=== PATIENT | male | born 1995 | race Caucasian/White ===

== ENCOUNTER 2017-08-08 16:30 | Emergency (ER) | payer OTHER ==
--- NOTE | 2017-08-08 18:44 | ED ---
Head Injury - HPI Summary HPI Summary: 21-year-old male presents with head injury yesterday. He states he was messing around and hit his head on the floor. Denies loss conscious. He admits to nausea but denies any vomiting. Denies any change in vision. He admits to photophobia. He states he is not able to sleep well last night. He denies any dizziness. He was sent from [facility] and they told him to come here for CT. He felt very anxious when he was seen there as he was tachycardic. He states he is not anxious any more. His vitals here are stable. - History Of Current Complaint Chief Complaint: EDHeadInjury Stated Complaint: HIT HEAD YESTERDAY Time Seen by Provider: 08/08/17 18:21 Pain Intensity: 3 - Allergies/Home Medications Allergies/Adverse Reactions: Allergies Allergy/AdvReac Type Severity Reaction Status Date / Time Penicillins Allergy Unknown Verified 08/08/17 16:34 Reaction Details PMH/Surg Hx/FS Hx/Imm Hx Endocrine/Hematology History: Denies: Hx Anticoagulant Therapy Cardiovascular History: Denies: Hx Hypertension Infectious Disease History: No Infectious Disease History: Denies: Traveled Outside the [place] in Last 30 Days - Family History Known Family History: Negative: Seizure Disorder - Social History Alcohol Use: None Substance Use Type: Reports: Marijuana Substance Use Comment - Amount & Last Used: occasionally Smoking Status (MU): Never Smoked Tobacco Review of Systems Negative: Fever Negative: Chest Pain Negative: Shortness Of Breath Positive: Nausea. Negative: Vomiting Positive: Headache All Other Systems Reviewed And Are Negative: Yes Physical Exam Triage Information Reviewed: Yes Vital Signs On Initial Exam: Initial Vitals Temp Pulse Resp BP Pulse Ox 98.0 F 97 20 130/68 99 08/08/17 16:34 08/08/17 16:34 08/08/17 16:34 08/08/17 16:34 08/08/17 16:34 Vital Signs Reviewed: Yes Appearance: Positive: Well-Appearing Skin: Positive: Warm, Dry Head/Face: Positive: Normal Head/Face Inspection, Other - no step off, racoon eyes, edge sign Eyes: Positive: Normal, EOMI, WONG, Conjunctiva Clear ENT: Positive: Normal ENT inspection, Pharynx normal, TMs normal Respiratory/Lung Sounds: Positive: Clear to Auscultation, Breath Sounds Present Cardiovascular: Positive: Normal, RRR Abdomen Description: Positive: Nontender, Soft Bowel Sounds: Positive: Present Musculoskeletal: Positive: Normal Neurological: Positive: Sensory/Motor Intact, Alert, Oriented to Person Place, Time, CN Intact II-III, Heel to Toe, Finger to Nose Psychiatric: Positive: Normal - Kelford Coma Scale Best Eye Response: 4 - Spontaneous Best Motor Response: 6 - Obeys Commands Best Verbal Response: 5 - Oriented Coma Scale Total: 15 Diagnostics - Vital Signs Vital Signs Temp Pulse Resp BP Pulse Ox 08/08/17 16:34 98.0 F 97 20 130/68 99 - Laboratory Lab Statement: Any lab studies that have been ordered have been reviewed, and results considered in the medical decision making process. Head Injury Course/Dx Course Of Treatment: 21-year-old male presents with head injury yesterday. He states he was messing around and hit his head on the floor. Denies loss conscious. He admits to nausea but denies any vomiting. Denies any change in vision. He admits to photophobia. He states he is not able to sleep well last night. He denies any dizziness. He was sent from [facility] and they told him to come here for CT. He felt very anxious when he was seen there as he was tachycardic. He states he is not anxious any more. His vitals here are stable. On exam normal neuro exam. According to the [place] CT rules no imaging required. Discuss with patient and will not get CT at this time. Explained has concussion. Will have follow-up with [facility]. Patient understands and agrees with plan. - Diagnoses Differential Diagnosis/HQI/PQRI: Concussion Without LOC, Contusion, Intracranial Bleed Provider Diagnoses: Head injury Discharge - Discharge Plan Condition: Good Disposition: HOME Patient Education Materials: Concussion (ED) Referrals: [facility] - Hernán DAMICO [Primary Care Provider] - Additional Instructions: Place ice on area as needed Take Tylenol or ibuprofen for headache every 6 hours Modify activities as tolerated Follow up with hernán within 5 days Return to ED if develop vomiting, severe headache, or any new or worsening symptoms
[2017-08-08 18:50] VITALS: BP 129/68
== END 2017-08-08 18:48 | disposition home or self-care (01) ==
LOC: ED 16:30
DX: S09.90XA Unspecified injury of head, initial encounter (principal); W22.09XA Striking against other stationary object, initial encounter; Y92.9 Unspecified place or not applicable; Z88.0 Allergy status to penicillin; R51 Headache
CPT/HCPCS: 99281